=== PATIENT | male | born 1945 | race Caucasian/White ===

== ENCOUNTER 2019-02-19 09:32 | Day surgery (SDC) | payer MEDICARE, BC ==
[2019-02-19] MEDS ORDERED: Lactated Ringers 1,000 ML IV SCH (10:00)
[2019-02-19] MEDS ORDERED: Midazolam 1 MG/ML 2 ML SDV ONE (11:39)
[2019-02-19] MEDS ORDERED: Propofol 200 MG/20 ML SDV ONE (11:39)
[2019-02-19] MEDS ORDERED: fentaNYL 100 MCG/2 ML SDV ONE (11:39)
--- NOTE | 2019-02-19 13:58 | OR ---
DATE OF PROCEDURE: 02/19/2019 SURGEON: Rodger Bravo MD PREOPERATIVE DIAGNOSIS: Colon cancer screening. POSTOPERATIVE DIAGNOSES: Diverticulosis and small rectal polyp. PROCEDURE PERFORMED: Colonoscopy to the cecum with biopsy resection of small rectal polyp. ANESTHESIA: IV anesthesia with monitored anesthesia care. INDICATION: This 73-year-old white male is referred for a colonoscopy for colon cancer screening. His last colonoscopic exam he says was done 10 years ago. I counseled him for the procedure, including risks and alternatives, and he gave his informed consent to proceed. DESCRIPTION OF PROCEDURE: The patient was placed in the left lateral decubitus position. IV anesthesia was administered by the anesthesia service. Time-out was held. A rectal exam was performed, which was unremarkable. The flexible video Olympus colonoscope was introduced through his anus, up his rectum and out his colon, all the way to the cecum. En route, we saw a single diverticulum in the left colon. There was no bleeding or inflammation associated with it. Once the cecum was reached, the scope was slowly withdrawn, examining the mucosa throughout. No additional mucosal abnormalities were initially noted. The scope was retroflexed in the rectum with the distal rectum appearing unremarkable. The scope was straightened. At this point, we saw a small polyp, which was removed with a couple of bites of biopsy forceps. The scope was then removed. He tolerated the procedure well. Rodger Bravo MD /[id number]
== END 2019-02-19 13:46 | disposition home or self-care (01) ==
LOC: JP.SDS 09:32
PROVIDERS: ATTEND Surgery
DX: Z12.11 Encounter for screening for malignant neoplasm of colon (principal); K57.30 Diverticulosis of large intestine without perforation or abscess without bleeding; K62.1 Rectal polyp; K21.9 Gastro-esophageal reflux disease without esophagitis; I10 Essential (primary) hypertension; M19.90 Unspecified osteoarthritis, unspecified site
CPT/HCPCS: 45380; J2250; J2704; J3010; J7120; 88305

== ENCOUNTER 2024-09-22 05:06 | Emergency (ER) | payer MEDICARE, BC ==
[2024-09-22 05:33] LABS: BASOPHILS PERCENT AUTO 0.5 % (0.1-1.3); EOSINOPHILS ABSOLUTE AUTO 0.03 K/uL (0.00-0.40); EOSINOPHILS PERCENT AUTO 1.6 % (0.0-5.4); HEMATOCRIT 23.2 % (38.4-49.7); HEMOGLOBIN 8.4 g/dL (12.9-16.9); IMMATURE GRAN PERCENT AUTO 0.5 % (0.0-0.7); LYMPHOCYTES ABSOLUTE AUTO 0.14 K/uL (0.8-3.3); LYMPHOCYTES PERCENT AUTO 7.3 % (11.4-47.7); MEAN CORPUSCULAR HGB CONC 36.2 g/dL (31.6-35.5); MEAN CORPUSCULAR VOLUME 85.6 fL (81.4-99.0); MONOCYTES ABSOLUTE AUTO 0.13 K/uL (0.20-0.90); MONOCYTES PERCENT AUTO 6.8 % (3.3-12.6); NEUTROPHILS PERCENT AUTO 83.3 % (40.0-78.1); PLATELET COUNT,PLT 39 K/uL (130-375); RED BLOOD CELL COUNT 2.71 M/uL (4.14-5.76); WHITE BLOOD CELL COUNT,WBC 1.9 K/uL (3.2-11.0)
[2024-09-22 05:34] LABS: BASOPHILS ABSOLUTE AUTO 0.01 K/uL (0.00-0.10); IMMATURE GRAN ABSOLUTE AUTO 0.01 K/uL (0.00-0.23)
[2024-09-22] MEDS: Acetaminophen 500 MG Tab PO ONE (05:34)
[2024-09-22] MEDS: Sodium Chloride 0.9% 1,000 ML IV SCH ×2 (05:34→06:30)
[2024-09-22 05:52] LABS: A/G RATIO 1.3 (1.2-2.2); ALANINE AMINOTRANSFERASE,ALT 44 U/L (12-78); ALKALINE PHOSPHATASE 100 U/L (46-116); ASPARTATE AMNIOTRANSFERASE,AST 48 U/L (15-37); BILIRUBIN TOTAL 1.5 mg/dL (0.2-1.0); BLOOD UREA NITROGEN,BUN 27 mg/dL (7-18); CALCIUM 8.4 mg/dL (8.5-10.1); CARBON DIOXIDE,CO2 25 mmol/L (21-32); CHLORIDE,CL 87 mmol/L (100-108); CREATININE 1.1 mg/dL (0.8-1.3); ESTIMATED GFR 67 mL/min (>60); GLUCOSE RANDOM 119 mg/dL (74-106); POTASSIUM,K 4.1 mmol/L (3.6-5.2); PROTEIN TOTAL,TP 5.3 g/dL (6.4-8.2); SODIUM,NA 122 mmol/L (140-148)
[2024-09-22 05:53] LABS: ANION GAP 14.1 mmol/L (5.0-14.0)
[2024-09-22 05:54] LABS: LACTIC ACID 1.1 mmol/L (0.4-2.0)
[2024-09-22 06:20] LABS: APPEARANCE,URINE CLEAR (CLEAR); BILIRUBIN,URINE NEGATIVE (NEGATIVE); COLOR,URINE YELLOW (YELLOW); GLUCOSE,URINE NEGATIVE (NEGATIVE); KETONES,URINE NEGATIVE (NEGATIVE); LEUKOCYTE ESTERASE,URINE NEGATIVE (NEGATIVE); NITRITE,URINE NEGATIVE (NEGATIVE); OCCULT BLOOD,URINE NEGATIVE (NEGATIVE); PROTEIN,URINE 100 mg/dL (NEGATIVE)
[2024-09-22] MEDS: Sodium Chloride 0.9% 80 ML IV SCH (06:23)
[2024-09-22] MEDS: Iopamidol 612 MG/ML 100 ML Bottle IV SCH (06:25)
[2024-09-22 06:30] LABS: AMORPHOUS SEDIMENT,URINE RARE; BACTERIA,URINE RARE; EPITHELIAL CELLS,URINE NOT SEEN; MUCUS,URINE NOT SEEN; RBC,URINE NOT SEEN (0-5); WBC,URINE 0-5 (0-5)
[2024-09-22] MEDS: Sodium Chloride 0.9% 1,000 ML IV ONE (07:22)
[2024-09-22] MEDS: cefTRIAXone 1 GM in Sodium Chloride 0.9% 50 ML IV ONE (07:37)
== END 2024-09-22 11:05 ==
LOC: JP.ED 05:06
DX: E87.1 Hypo-osmolality and hyponatremia (principal); R65.10 Systemic inflammatory response syndrome (SIRS) of non-infectious origin without acute organ dysfunction; R16.1 Splenomegaly, not elsewhere classified; R50.9 Fever, unspecified; D61.818 Other pancytopenia; I10 Essential (primary) hypertension; Z87.891 Personal history of nicotine dependence; Z79.899 Other long term (current) drug therapy
CPT/HCPCS: 36415; 71260; 74177; 80053; 81001; 83605; 83690; 85025; 86140; 87040; 96361; 96365; 99285; A9270; J0696; J7030; Q9967; U0002

== ENCOUNTER 2024-12-09 09:57 | Emergency (ER) | payer MEDICARE, BC ==
[2024-12-09 10:46] LABS: RED BLOOD CELL COUNT 3.35 M/uL (4.14-5.76); WHITE BLOOD CELL COUNT,WBC 2.5 K/uL (3.2-11.0)
[2024-12-09 10:52] LABS: PLATELET COUNT,PLT 27 K/uL (130-375)
[2024-12-09 11:06] LABS: A/G RATIO 1.5 (1.2-2.2); ALANINE AMINOTRANSFERASE,ALT 37 U/L (12-78); ASPARTATE AMNIOTRANSFERASE,AST 67 U/L (15-37); BILIRUBIN TOTAL 1.2 mg/dL (0.2-1.0); BLOOD UREA NITROGEN,BUN 15 mg/dL (7-18); CARBON DIOXIDE,CO2 27 mmol/L (21-32); CHLORIDE,CL 89 mmol/L (100-108); CREATININE 0.9 mg/dL (0.8-1.3); EST CRCL DRUG DOSING (CG) 60.18 mL/min; ESTIMATED GFR 86 mL/min (>60); GLUCOSE RANDOM 112 mg/dL (74-106); POTASSIUM,K 4.6 mmol/L (3.6-5.2); PROTEIN TOTAL,TP 5.9 g/dL (6.4-8.2); SODIUM,NA 122 mmol/L (140-148)
[2024-12-09 11:18] LABS: LYMPHOCYTES ABSOLUTE MAN 0.65 K/uL (0.8-3.3); LYMPHOCYTES PERCENT MAN 26 % (24-44); METAMYELOCYTE ABSOLUTE MAN 0.10 K/uL; METAMYELOCYTE PERCENT MAN 4 %; MONOCYTES ABSOLUTE MAN 0.10 K/uL (0.20-0.90); MONOCYTES PERCENT MAN 4 % (2-6); NEUTROPHILS ABSOLUTE MAN 1.65 K/uL (1.0-7.6); SEG NEUTROPHILS PERCENT MAN 66 % (36-66)
[2024-12-09 11:29] LABS: APPEARANCE,URINE CLEAR (CLEAR); GLUCOSE,URINE NEGATIVE (NEGATIVE); OCCULT BLOOD,URINE TRACE-INTACT (NEGATIVE)
[2024-12-09 11:38] LABS: SQUAMOUS EPITHELIAL CELLS,UR NOT SEEN /HPF; UROTHELIAL CELLS,URINE NOT SEEN /HPF
[2024-12-09 11:42] LABS: AMPHETAMINES SCREEN, URINE NEGATIVE (NEGATIVE); METHADONE SCREEN, URINE NEGATIVE (NEGATIVE); METHAMPHETAMINES SCREEN, URINE NEGATIVE (NEGATIVE); OXYCODONE SCREEN,URINE NEGATIVE (NEGATIVE); PROPOXYPHENE SCREEN,URINE NEGATIVE (NEGATIVE); THC SCREEN,URINE 50 NG/ML NEGATIVE (NEGATIVE)
== END 2024-12-09 13:41 | disposition home or self-care (01) ==
LOC: JP.ED 09:57
DX: E87.1 Hypo-osmolality and hyponatremia (principal); C85.90 Non-Hodgkin lymphoma, unspecified, unspecified site; Z79.899 Other long term (current) drug therapy; Z87.891 Personal history of nicotine dependence
CPT/HCPCS: 36415; 80053; 80305-QW; 80307; 81001; 83605; 85025; 93005; 99283

== ENCOUNTER 2024-12-23 09:03 | Emergency (ER) | payer MEDICARE, BC | END 2024-12-23 10:32 | disposition home or self-care (01) | LOC: JP.ED 09:03 | DX: S40.011A Contusion of right shoulder, initial encounter (principal); S00.81XA Abrasion of other part of head, initial encounter; K21.9 Gastro-esophageal reflux disease without esophagitis; I10 Essential (primary) hypertension; Z87.891 Personal history of nicotine dependence; Z88.8 Allergy status to other drugs, medicaments and biological substances; Z79.899 Other long term (current) drug therapy; W01.198A Fall on same level from slipping, tripping and stumbling with subsequent striking against other object, initial encounter; Y93.89 Activity, other specified | CPT/HCPCS: 70450; 70450-26; 73030-26-RT; 73030-RT; 99283; 99284 ==

== ENCOUNTER 2025-02-10 17:57 | Emergency (ER) | payer MEDICARE, BC | END 2025-02-10 19:43 | disposition home or self-care (01) | LOC: JP.ED 17:57 | DX: L27.0 Generalized skin eruption due to drugs and medicaments taken internally (principal); I10 Essential (primary) hypertension; Z88.1 Allergy status to other antibiotic agents; Z79.899 Other long term (current) drug therapy | CPT/HCPCS: 99282 ==

== ENCOUNTER 2025-04-18 10:41 | Inpatient (IN) | payer MEDICARE, BC ==
[2025-04-18 11:36] LABS: BASOPHILS PERCENT AUTO 0.4 % (0.1-1.3); EOSINOPHILS ABSOLUTE AUTO 0.04 K/uL (0.00-0.40); EOSINOPHILS PERCENT AUTO 1.6 % (0.0-5.4); IMMATURE GRAN PERCENT AUTO 0.4 % (0.0-0.7); LYMPHOCYTES ABSOLUTE AUTO 0.33 K/uL (0.8-3.3); LYMPHOCYTES PERCENT AUTO 13.6 % (11.4-47.7); MONOCYTES ABSOLUTE AUTO 0.42 K/uL (0.20-0.90); MONOCYTES PERCENT AUTO 17.3 % (3.3-12.6); NEUTROPHILS ABSOLUTE AUTO 1.62 K/uL (1.0-7.6); NEUTROPHILS PERCENT AUTO 66.7 % (40.0-78.1); PLATELET COUNT,PLT 103 K/uL (130-375); RED BLOOD CELL COUNT 3.35 M/uL (4.14-5.76); WHITE BLOOD CELL COUNT,WBC 2.4 K/uL (3.2-11.0)
[2025-04-18 11:37] LABS: BASOPHILS ABSOLUTE AUTO 0.01 K/uL (0.00-0.10); IMMATURE GRAN ABSOLUTE AUTO 0.01 K/uL (0.00-0.23)
[2025-04-18 11:57] LABS: A/G RATIO 1.0 (1.2-2.2); ALANINE AMINOTRANSFERASE,ALT 25 U/L (12-78); ASPARTATE AMNIOTRANSFERASE,AST 24 U/L (15-37); BILIRUBIN TOTAL 0.5 mg/dL (0.2-1.0); BLOOD UREA NITROGEN,BUN 60 mg/dL (7-18); CARBON DIOXIDE,CO2 26 mmol/L (21-32); CHLORIDE,CL 99 mmol/L (100-108); EST CRCL DRUG DOSING (CG) 12.99 mL/min; ESTIMATED GFR 14 mL/min (>60); GLUCOSE RANDOM 107 mg/dL (74-106); POTASSIUM,K 4.7 mmol/L (3.6-5.2); PROTEIN TOTAL,TP 5.8 g/dL (6.4-8.2); SODIUM,NA 134 mmol/L (140-148)
[2025-04-18 12:04] LABS: CREATININE 4.1 mg/dL (0.8-1.3)
[2025-04-18 12:51] LABS: APPEARANCE,URINE SLIGHTLY CLOUDY (CLEAR); GLUCOSE,URINE NEGATIVE (NEGATIVE); OCCULT BLOOD,URINE SMALL (NEGATIVE)
[2025-04-18 12:57] LABS: SQUAMOUS EPITHELIAL CELLS,UR FEW /HPF; UROTHELIAL CELLS,URINE NOT SEEN /HPF
[2025-04-18] MEDS ORDERED: Ondansetron 4 MG Tab.DIS PO PRN (15:52)
[2025-04-18] MEDS ORDERED: Ondansetron 4 MG/2 ML SDV IV PRN (15:52)
[2025-04-19 05:47] LABS: PLATELET COUNT,PLT 89.0 K/uL (130-375); RED BLOOD CELL COUNT 3.03 M/uL (4.14-5.76); WHITE BLOOD CELL COUNT,WBC 2.8 K/uL (3.2-11.0)
[2025-04-19 06:05] LABS: BLOOD UREA NITROGEN,BUN 65.0 mg/dL (7-18); CARBON DIOXIDE,CO2 24.0 mmol/L (21-32); CHLORIDE,CL 107.0 mmol/L (100-108); EST CRCL DRUG DOSING (CG) 10.71 mL/min; ESTIMATED GFR 11.0 mL/min (>60); GLUCOSE RANDOM 98.0 mg/dL (74-106); POTASSIUM,K 4.9 mmol/L (3.6-5.2); SODIUM,NA 141.0 mmol/L (140-148)
[2025-04-19 06:17] LABS: CREATININE 5.1 mg/dL (0.8-1.3)
[2025-04-19] MEDS: Simethicone 125 MG Tab.Chew PO PRN (13:08)
[2025-04-20 05:53] LABS: BASOPHILS PERCENT AUTO 0.4 % (0.1-1.3); EOSINOPHILS ABSOLUTE AUTO 0.05 K/uL (0.00-0.40); EOSINOPHILS PERCENT AUTO 1.0 % (0.0-5.4); IMMATURE GRAN ABSOLUTE AUTO 0.03 K/uL (0.00-0.23); IMMATURE GRAN PERCENT AUTO 0.6 % (0.0-0.7); LYMPHOCYTES ABSOLUTE AUTO 0.72 K/uL (0.8-3.3); LYMPHOCYTES PERCENT AUTO 14.7 % (11.4-47.7); MONOCYTES ABSOLUTE AUTO 0.78 K/uL (0.20-0.90); MONOCYTES PERCENT AUTO 16.0 % (3.3-12.6); NEUTROPHILS ABSOLUTE AUTO 3.29 K/uL (1.0-7.6); NEUTROPHILS PERCENT AUTO 67.3 % (40.0-78.1); PLATELET COUNT,PLT 144 K/uL (130-375); RED BLOOD CELL COUNT 3.47 M/uL (4.14-5.76); WHITE BLOOD CELL COUNT,WBC 4.9 K/uL (3.2-11.0)
[2025-04-20 05:55] LABS: BASOPHILS ABSOLUTE AUTO 0.02 K/uL (0.00-0.10)
[2025-04-20 06:14] LABS: A/G RATIO 0.8 (1.2-2.2); ALANINE AMINOTRANSFERASE,ALT 13 U/L (12-78); ASPARTATE AMNIOTRANSFERASE,AST 18 U/L (15-37); BILIRUBIN TOTAL 0.4 mg/dL (0.2-1.0); BLOOD UREA NITROGEN,BUN 75 mg/dL (7-18); CARBON DIOXIDE,CO2 21 mmol/L (21-32); CHLORIDE,CL 101 mmol/L (100-108); EST CRCL DRUG DOSING (CG) 8.81 mL/min; ESTIMATED GFR 8 mL/min (>60); GLUCOSE RANDOM 102 mg/dL (74-106); POTASSIUM,K 4.6 mmol/L (3.6-5.2); PROTEIN TOTAL,TP 5.7 g/dL (6.4-8.2); SODIUM,NA 134 mmol/L (140-148)
[2025-04-20 06:19] LABS: CREATININE 6.2 mg/dL (0.8-1.3)
[2025-04-20] MEDS: Bumetanide 1 MG/4 ML MDV IVPUSH ONE (16:21)
[2025-04-20] MEDS: Albuterol 0.083% 2.5 MG/3 ML Neb Soln NEB PRN (16:21)
[2025-04-21 05:54] LABS: PLATELET COUNT,PLT 129.0 K/uL (130-375); RED BLOOD CELL COUNT 3.0 M/uL (4.14-5.76); WHITE BLOOD CELL COUNT,WBC 3.5 K/uL (3.2-11.0)
[2025-04-21 06:14] LABS: CARBON DIOXIDE,CO2 19.0 mmol/L (21-32); CHLORIDE,CL 100.0 mmol/L (100-108); EST CRCL DRUG DOSING (CG) 7.48 mL/min; ESTIMATED GFR 7.0 mL/min (>60); GLUCOSE RANDOM 110.0 mg/dL (74-106); POTASSIUM,K 4.8 mmol/L (3.6-5.2); SODIUM,NA 131.0 mmol/L (140-148)
[2025-04-21 06:16] LABS: BLOOD UREA NITROGEN,BUN 86.0 mg/dL (7-18)
[2025-04-21 06:17] LABS: CREATININE 7.3 mg/dL (0.8-1.3)
[2025-04-21 22:02] LABS: ALBUMIN - MG/DL 195.0 mg/dL; ALBUMIN/CREATININE RATIO 1489 mg/g (0-30); CREATININE,URINE - PER VOLUME 131 mg/dL; HOURS COLLECTED Random hr
[2025-04-22 04:15] LABS: PLATELET COUNT,PLT 160.0 K/uL (130-375); RED BLOOD CELL COUNT 2.99 M/uL (4.14-5.76); WHITE BLOOD CELL COUNT,WBC 3.3 K/uL (3.2-11.0)
[2025-04-22 04:33] LABS: A/G RATIO 0.8 (1.2-2.2); ALANINE AMINOTRANSFERASE,ALT 16 U/L (12-78); ASPARTATE AMNIOTRANSFERASE,AST 10 U/L (15-37); BILIRUBIN TOTAL 0.4 mg/dL (0.2-1.0); CARBON DIOXIDE,CO2 19 mmol/L (21-32); CHLORIDE,CL 100 mmol/L (100-108); EST CRCL DRUG DOSING (CG) 6.83 mL/min; ESTIMATED GFR 6 mL/min (>60); GLUCOSE RANDOM 116 mg/dL (74-106); POTASSIUM,K 4.8 mmol/L (3.6-5.2); PROTEIN TOTAL,TP 5.5 g/dL (6.4-8.2); SODIUM,NA 131 mmol/L (140-148)
[2025-04-22 04:46] LABS: BLOOD UREA NITROGEN,BUN 92 mg/dL (7-18); CREATININE 8.0 mg/dL (0.8-1.3)
== END 2025-04-22 08:32 | DRG 683 ==
LOC: JP.ED 10:41 → JP.MS 15:08
PROVIDERS: ADMIT Internal Medicine; ATTEND Internal Medicine
PROC: 0T9B70Z Drainage of Bladder with Drainage Device, Via Natural or Artificial Opening (ICD-10-PCS; principal; 2025-04-20)
DX: N17.9 Acute kidney failure, unspecified (principal); E86.0 Dehydration; C85.97 Non-Hodgkin lymphoma, unspecified, spleen; D61.818 Other pancytopenia; Z87.891 Personal history of nicotine dependence; E87.20 Acidosis, unspecified; R18.8 Other ascites; R59.1 Generalized enlarged lymph nodes; R16.1 Splenomegaly, not elsewhere classified; H54.7 Unspecified visual loss; I10 Essential (primary) hypertension; K21.9 Gastro-esophageal reflux disease without esophagitis; F41.9 Anxiety disorder, unspecified; M19.90 Unspecified osteoarthritis, unspecified site; T50.995A Adverse effect of other drugs, medicaments and biological substances, initial encounter; G62.9 Polyneuropathy, unspecified; Z85.828 Personal history of other malignant neoplasm of skin; Z85.820 Personal history of malignant melanoma of skin; Z98.49 Cataract extraction status, unspecified eye; Z79.899 Other long term (current) drug therapy; Z79.1 Long term (current) use of non-steroidal anti-inflammatories (NSAID)
CPT/HCPCS: 36415; 51702; 51798; 71046; 71046-26; 74176; 74176-26; 80048; 80053; 81001; 82043; 82570; 83615; 83735; 85025; 85027; 86140; 87040; 87046; 87427; 87428-QW; 87493; 89055; 94640; 99223; 99232; 99233; 99239; 99284; 99285; A9270-GY; J1939; J7030